=== PATIENT | female | born 1970 | race Caucasian/White ===

== ENCOUNTER 2020-03-22 18:35 | Emergency (ER) | payer SELFPAY ==
[~2020-03-22] VITALS: Ht 149.9 cm; Wt 61.2 kg
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
[2020-03-22 19:00] LABS: APPEARANCE,URINE Clear (CLEAR); BILIRUBIN,URINE Negative (NEGATIVE); BLOOD, URINE Trace-intact Ery/uL (NEGATIVE); COLOR,URINE Yellow (YELLOW); KETONES,URINE Negative (NEGATIVE); LEUKOCYTE ESTERASE ,URINE Negative (NEGATIVE); NITRITE, URINE Negative (NEGATIVE); PROTEIN,URINE Negative (NEGATIVE); UGLUCOSE Negative (NEGATIVE); UROBILINOGEN,URINE 0.2 EU/dL (0.2)
[2020-03-22 19:02] LABS: BASOPHILS % (AUTO) 0.4 % (0.0-2.0); EOSINOPHILS % (AUTO) 4.5 % (0.0-6.0); HEMATOCRIT 36 % (33-45); HEMOGLOBIN 11.8 g/dL (11.5-14.8); LYMPHOCYTES % (AUTO) 27.7 % (20.0-44.0); MEAN CORPUSCULAR HGB CONC 33 g/dl (31.0-36.0); MEAN CORPUSCULAR VOLUME 92 fL (82-100); MONOCYTES # (AUTO) 0.5 /CMM (0.1-1.30); MONOCYTES % (AUTO) 6.6 % (2.0-12.0); NEUTROPHILS # (AUTO) 4.4 /CMM (1.8-8.9); NEUTROPHILS % (AUTO) 60.8 % (43.0-81.0); PLATELET COUNT (AUTO) 281 /CMM (150-450); RED BLOOD CELL COUNT(AUTO) 3.95 MIL/uL (4.0-5.2); WHITE BLOOD COUNT (AUTO) 7.3 K/uL (4.3-11.0)
[2020-03-22] MEDS ORDERED: LORAZEPAM INJ 2 MG/ML VIAL ONE (19:02)
[2020-03-22] MEDS: LORAZEPAM INJ 2 MG/ML VIAL IM ONE (19:05)
--- NOTE | 2020-03-22 19:05 | NUR ---
medicated as ordered. see emar.
[2020-03-22 19:12] LABS: CALCIUM, SERUM 8.5 mg/dL (8.5-10.1); CREATININE 0.7 mg/dL (0.6-1.3); POTASSIUM 3.7 mmol/L (3.5-5.1)
[2020-03-22 19:18] LABS: ALBUMIN 3.7 g/dL (3.4-5.0); BILIRUBIN,DIRECT 0.1 mg/dL (0.0-0.2); BILIRUBIN,TOTAL 0.1 mg/dL (0.2-1.0); TOTAL PROTEIN, SERUM 7.5 g/dL (6.4-8.2)
[2020-03-22 19:33] LABS: BACTERIA,URINE Few /HPF (None Seen); RBC,URINE 0-2 /HPF (0-2); SQUAMOUS EPITHELIAL CELL,UR Few /HPF (None Seen); WBC,URINE 0-2 /HPF (0-3)
--- NOTE | 2020-03-23 03:37 | NUR ---
PT'S FRIEND, XIAO
--- NOTE | 2020-03-23 03:48 | NUR ---
Patient is resting comfortably in bed with eyes closed. Easily aroused. VSS
--- NOTE | 2020-03-23 04:20 | NUR ---
Patient discharged to home in stable condition. Written and verbal after care instructions given. Patient verbalizes understanding of instruction.pt. ambulatory with a steady gait
[2020-03-23 05:45] VITALS: BP 109/59
== END 2020-03-23 05:46 | disposition home or self-care (01) ==
LOC: ER 18:36
DX: F10.129 Alcohol abuse with intoxication, unspecified (principal); R45.851 Suicidal ideations; R45.850 Homicidal ideations; R45.1 Restlessness and agitation; Y90.4 Blood alcohol level of 80-99 mg/100 ml; Z59.0 Homelessness
CPT/HCPCS: 36415; 80048; 80076; 80299; 80307; 80320 ×2; 81001; 84703; 85025; 96372; 99285; J2060; 81000-TC; G0480

== ENCOUNTER 2021-09-22 17:02 | Emergency (ER) | payer OTHER ==
[~2021-09-22] VITALS: Ht 149.9 cm; Wt 63.5 kg
[2021-09-22 18:05] VITALS: BP 133/74
[2021-09-22] MEDS ORDERED: ONDA4TAB11 PO (18:23)
== END 2021-09-22 18:28 | disposition home or self-care (01) ==
LOC: ER 17:02
DX: K80.50 Calculus of bile duct without cholangitis or cholecystitis without obstruction (principal); Z87.738 Personal history of other specified (corrected) congenital malformations of digestive system; Z79.899 Other long term (current) drug therapy